=== PATIENT | male | born 1960 | race Two or more races ===

== ENCOUNTER 2020-09-29 06:40 | Day surgery (SDC) | payer OTHER | END 2020-09-29 13:00 | disposition home or self-care (01) | LOC: AMB-ENDOS 06:40 | PROVIDERS: ATTEND Surgery | DX: D12.0 Benign neoplasm of cecum (principal); K64.8 Other hemorrhoids; Z20.828 Contact with and (suspected) exposure to other viral communicable diseases ==

== ENCOUNTER 2020-11-09 11:15 | Inpatient (IN) | payer OTHER ==
[~2020-11-09] VITALS: Ht 162.6 cm; Wt 68.5 kg
[2020-11-09] MEDS ORDERED: SIMVASTA PO (14:49)
[2020-11-09] MEDS ORDERED: ATACAND4 MG PO (14:49)
[2020-11-09] MEDS ORDERED: MEMANTINE HCL10 MG PO (14:50)
[2020-11-09] MEDS ORDERED: CLONAZEPAM1 MG PO (14:51)
[2020-11-09] MEDS ORDERED: ARICEPT10 MG PO (14:51)
[2020-11-09] MEDS ORDERED: MIRTAZAPINE15 M1 PO (14:52)
[2020-11-16] MEDS ORDERED: PROTECT PLUS S1 EACH (08:02)
[2020-11-16] MEDS ORDERED: VITAMIN D31250 MCG (08:02)
[2020-11-16] MEDS ORDERED: SIMVASTATIN20 MG PO (08:03)
[2020-11-20] MEDS ORDERED: OXYC1TAB9 PO (08:27)
[2020-11-20] MEDS ORDERED: INTESTINEX680 M1 PO (08:28)
== END 2020-11-20 11:29 | disposition home or self-care (01) | DRG 331 ==
LOC: O/R 11-16 06:34 → SURG 11-16 06:34 → SURH 11-16 06:34 → SURG 11-16 11:40 → SURH 11-16 16:32
PROVIDERS: ADMIT Surgery; ATTEND Surgery
PROC: 0DBF4ZZ Excision of Right Large Intestine, Percutaneous Endoscopic Approach (ICD-10-PCS; principal; 2020-11-16 08:15)
DX: D12.2 Benign neoplasm of ascending colon (principal); D12.0 Benign neoplasm of cecum; I11.9 Hypertensive heart disease without heart failure; I25.10 Atherosclerotic heart disease of native coronary artery without angina pectoris